=== PATIENT | female | born 1990 | race African-American/Black ===

== ENCOUNTER → 2018-02-06 | Outpatient (CLI) | payer OTHER ==
--- NOTE | 2018-02-06 13:40 | DIAGNOSTIC IMAGING REPORT ---
L KNEE 3 VIEWS HISTORY: 27 years-old Female KNEE PAIN SPECIFICALLY @ THE TIBIAL TUBEROSITY acute left knee pain without reported trauma COMPARISON: None available TECHNIQUE: 3 views of the left knee FINDINGS: There is no acute fracture, dislocation, osteochondral defect or opaque foreign body. No large joint effusion. Mild medial soft tissue swelling. IMPRESSION: Mild soft tissue swelling without fracture. The above report was generated using voice recognition software. It may contain grammatical, syntax or spelling errors. Electronically signed by: Silvestre Parmar M.D. 02/06/2018 1:38 PM Dictated Date/Time: 02/06/2018 1:37 PM
== END | disposition home or self-care (01) ==
LOC: C.RAD1850 13:15
PROVIDERS: ATTEND Nurse Practitioner Family
DX: M25.562 Pain in left knee (principal)